=== PATIENT | female | born 1970 | race Caucasian/White ===

== ENCOUNTER 2017-04-18 19:03 | Emergency (ER) | payer BC ==
--- NOTE | 2017-04-18 20:49 | ED NURSING NOTES ---
Clinical Report - Nurses [facility] [address] [place] [address] 04/18/2017 19:07 Patient: CONRAD NESBITT TRIAGE Triage time 19:33. Acuity: LEVEL 3. Chief Complaint: ABDOMINAL PAIN, NAUSEA and DIARRHEA. --19:43 Amparo Guzmán R.N. 19:31 04/18/17. BP: 132/57 taken on the left arm, while lying. HR: 68 (regular and normal rate). RR: 18. O2 saturation: 97% on room air. Temp: 98.3 F. Pain level now: 03/02. --19:43 Amparo Guzmán R.N. Weight: 81.6 kg stated. Height/Length: 68 inches Per Patient. BMI: 27.4. --19:34 Amparo Guzmán R.N. Medications None. --19:36 Amparo Guzmán R.N. Allergies Dilaudid. Definite Severe(Anaphylaxis) --19:36 Amparo Guzmán R.N. History Arrived by private vehicle. Historian: patient. Accompanied by family. Primary physician (none). Onset was gradual. (3 days). ( abd pain started 3 days ago clammy and feeling "yucky"). PAST MEDICAL HX: Immunizations: up-to-date. SOCIAL HX: Heavy tobacco smoker (cigarette)- 1 pack per day. Occasional alcohol use. History of occasional drug use: marijuana. (2 days ago). No recent travel. No known contact with a sick individual. ABUSE ASSESSMENT: No report of abuse. SELF HARM ASSESSMENT: A self harm assessment was performed. The patient answered "no" to the question "Have you recently felt down, depressed, or hopeless?", "Have you noticed less interest or pleasure in doing things?", "Do you have thoughts of harming or killing yourself?", "Are you here because you tried to hurt yourself?", "Have you ever tried to hurt yourself before today?", "Have you recently had thoughts about harming or killing others?" and "Do you have any dangerous items in your possession?". FALL RISK ASSESSMENT: Fall risk assessment completed. No fall risk identified. NUTRITIONAL RISK ASSESSMENT: The nutritional risk assessment revealed no deficiencies. FUNCTIONAL ASSESSMENT: Functional assessment: no impairments noted. LEARNING NEEDS ASSESSMENT: The learning needs assessment revealed no barriers. SKIN INTEGRITY ASSESSMENT: Skin integrity risk assessment completed. No skin integrity risk identified. --19:43 Amparo Guzmán R.N. PROBLEMS: no known problems. ADDITIONAL SURGERIES: Cholecystectomy. . Hysterectomy. Shoulder Surgery. --19:37 Amparo Guzmán R.N. Interventions ID band on patient. To treatment room. --19:43 Amparo Guzmán R.N. PHYSICAL ASSESSMENT Ambulatory to room. GENERAL / NEURO / PSYCH: Alert. Oriented X 4. Appears in no acute distress. HEENT: Mucous membranes are pink. RESPIRATORY: Respirations not labored. Breath sounds within normal limits. CVS: Normal sinus rhythm noted. Cardiac rhythm: normal sinus rhythm; frequent PVCs- bigeminy. Capillary refill less than 2 seconds and is greater than 2 seconds. GI / : Abdomen soft and nontender. Bowel sounds within normal limits. SKIN: Skin is warm and dry. --19:45 Amparo Guzmán R.N. NURSING PROGRESS NOTES Patient gowned. Two patient identifiers checked. Call light placed in reach. Side rails up x 1. Bed placed in lowest position. Brakes of bed on. Patient ready for evaluation- chart flagged. --19:45 Amparo Guzmán R.N. EKG time: (19:48). EKG was performed by a tech and shown to the ED physician. --19:53 Shandra Seo 19:55 04/18/2017 Site #1 started via IV in the left antecubital space with an 20g angiocath, with aseptic technique and good blood return; one attempt. Blood drawn: rainbow set. Labeled in the presence of the patient and sent to the lab. Saline lock flushed with 10 mL saline. --19:57 Amparo Guzmán R.N. 20:02 04/18/2017 Started bag #1 1000 mL IV Fluids IV NS (Saline); bolus of 1000 mL wide open via site #1. Allergies verified and confirmed 5 rights. IV patency established. IV site checked: no pain, redness, or swelling. IV flushed thoroughly pre- and post-medication administration. --20:02 Amparo Guzmán R.N. 20:05 04/18/2017 Zofran (Ondansetron HCl) IVP 4 mg given over 2 minute(s) via site #1. Allergies verified and confirmed 5 rights. IV patency established. IV site checked: no pain, redness, or swelling. IV flushed thoroughly pre- and post-medication administration. IVP given by RN. --20:05 Amparo Guzmán R.N. 20:06 04/18/2017 Toradol IVP 30 mg given over 2 minute(s) via site #1. Allergies verified and confirmed 5 rights. IV patency established. IV site checked: no pain, redness, or swelling. IV flushed thoroughly pre- and post-medication administration. IVP given by RN. --20:06 Amparo Guzmán R.N. 20:07 04/18/17. BP: 119/55. HR: 66. RR: 18. O2 saturation: 100%. Temp: deferred. Pain level now: 12/31. --20:09 Amparo Guzmán R.N. Overall patient status is improved- she states feels better. GI / : The patient reports nausea is gone now, still present but improving and currently mild in severity. SKIN: Skin is warm and dry. Skin color within normal limits. Two patient identifiers checked. Call light placed in reach. Side rails up x 1. Bed placed in lowest position. Brakes of bed on. --20:09 Amparo Guzmán R.N. 20:59 04/18/2017 IV Fluids IV NS Discontinued: completed. Total amount infused: 1000 mL. IV patency established. IV site checked: no pain, redness, or swelling. IV flushed thoroughly. --20:59 Amparo Guzmán R.N. 21:02 04/18/2017 Started 2 gm of Ceftriaxone IVPB in bag #1 50 mL; over 20 minute(s) via site #1 via IV pump. Allergies verified and confirmed 5 rights. IV patency established. IV site checked: no pain, redness, or swelling. IV flushed thoroughly pre- and post-medication administration. --21:02 Amparo Guzmán R.N. 21:28 04/18/2017 Ceftriaxone IVPB Discontinued: completed upon discharge. Total amount infused: 50 mL. IV patency established. IV site checked: no pain, redness, or swelling. IV flushed thoroughly. --21:39 Amparo Guzmná R.N. 21:39 04/18/2017 Site #1 removed upon discharge. Catheter intact. Manual pressure and bandage applied. --21:39 Amparo Guzmán R.N. DISPOSITION / DISCHARGE Departure time: 2133. Condition at departure: improved and stable. No learning barriers present. Discharge instructions provided and reviewed with the patient. Reviewed medication(s) side effects, precautions, dosing and course information. Prescription(s) given to the patient. Patient verbalized understanding. Written instructions provided in Uzbek. The patient was discharged home and accompanied by spouse. She left the Emergency Department ambulatory and via private vehicle. Spouse driving. --21:40 Amparo Guzmán R.N. 21:39 04/18/17. BP: 111/53. HR: 71 (regular and normal rate). RR: 18 (regular and unlabored). O2 saturation: 99% on room air. Temp: deferred. Pain level now: 0/10. --21:40 Amparo Guzmán R.N. Locked/Released at 04/18/2017 21:41 by Amparo Guzmán R.N.
--- NOTE | 2017-04-18 20:49 | ED CLINICAL REPORT ---
Clinical Report - Physicians/Mid Levels [facility] [address] [place] [address] 04/18/2017 19:07 Patient: CONRAD NESBITT Time Seen: 19:52 Yoan 2016. Arrived- By private vehicle. Historian- patient. HISTORY OF PRESENT ILLNESS Chief Complaint: ABDOMINAL PAIN. It is described as "pain" and it is described as located in the lower abdomen and in the pelvic area. This started 3 days and is still present. The patient has had nausea and loss of appetite. No vomiting or diarrhea. (patient presents with suprapubic pain abdominal pain over the last 2-3 days. Denies any fevers or chills, has had decrease in activity level and appetite. Denies any diarrhea. Denies any shortness of breath. Denies chest pain. Denies sick contacts.). REVIEW OF SYSTEMS No constipation, hematemesis, difficulty with urination, pain with urination or urinary frequency. No fever, chest pain or difficulty breathing. All systems otherwise negative, except as recorded above. PAST HISTORY Problems: no known problems. Additional Surgeries: Cholecystectomy. . Hysterectomy. Shoulder Surgery. Medications: None. Allergies: Dilaudid. Definite Severe(Anaphylaxis). SOCIAL HISTORY Smoker- current status unknown. Alcohol use. History of drug use: marijuana. ADDITIONAL NOTES The nursing notes have been reviewed. PHYSICAL EXAM Vital Signs: 04/18/2017 19:31 BP: 132/57. HR: 68. RR: 18. O2 saturation: 97%. Temp: 98.3 F. Pain level now: 5/10. Appearance: Alert. Eyes: Eyes normal inspection. ENT: Ears normal. Nose normal. Pharynx normal. CVS: Normal heart rate and rhythm. Heart sounds normal. Respiratory: No respiratory distress. Breath sounds normal. No accessory muscle use or decreased air movement. Abdomen: Tenderness in the suprapubic area. No guarding or Quevedo's or obturator sign present. No organomegaly. No mass. Back: Normal inspection. No CVA tenderness. Neuro: Oriented X 3. LABS, X-RAYS, AND EKG EKG: EKG time: (1947). No acute process. No acute ischemia. Rate: 64. frequent PVC. Prior EKG unavailable. The study has been interpreted contemporaneously. The EKG appears to be a good tracing. Laboratory Tests: UA-Culture if indicated: (EVE: 04/18/2017 19:50) ( MsgRcvd 04/18/2017 20:10) Final results Test Result Flag Units (Reference) URINE COLOR YELLOW URINE APPEARANCE CLEAR URINE GLUCOSE NEGATIVE (NEGATIVE) URINE BILIRUBIN NEGATIVE (NEGATIVE) URINE KETONE NEGATIVE (NEGATIVE) URINE SPECIFIC GRAVITY 1.015 (1.010-1.030) URINE PH 6.0 (5.0-8.0) URINE PROTEIN NEGATIVE (NEGATIVE) URINE UROBILINOGEN 0.2 EU/dL (0.2-1.0) URINE NITRITE POSITIVE (NEGATIVE) URINE BLOOD NEGATIVE (NEGATIVE) URINE LEUK ESTERASE NEGATIVE (NEGATIVE) URINE RBC 0-1 rbc/hpf (0-1) URINE WBC 1-3 wbc/hpf (0-1) URINE EPITHELIAL CELLS 1-3 EPI/hpf (0-5) URINE BACTERIA MANY (4+) (NONE SEEN) URINE COMMENT CULTURE INDICATED URINE CULTURES ARE SET-UP BASED ON THE FOLLOWING CRITERIA:POSITIVE NITRITEPOSITIVE LEUKOCYTE ESTERASEGREATER THAN 10 WHITE BLOOD CELLSMODERATE (2+) OR GREATER BACTERIA CBC w Diff: (EVE: 04/18/2017 19:51) ( MsgRcvd 04/18/2017 20:10) Final results Test Result Flag Units (Reference) WHITE BLOOD COUNT 8.8 K/uL (4.5-11.5) RED BLOOD COUNT 4.63 M/uL (4.00-5.20) HEMOGLOBIN 14.2 gm/dL (12.0-16.0) HEMATOCRIT 42.6 % (36.0-46.0) MEAN CELL VOLUME 92 fL (80-100) MEAN CORPUSCULAR HGB 31 pg (26-34) MEAN CORPUSCULAR HGB CONC 33 g/dL (31-37) RED CELL DISTRIBUTION WIDTH 13.2 % (11.6-14.8) PLATELET COUNT 206 K/uL (150-400) NEUTROPHIL % 57.6 % (50-75) LYMPH % 30.9 % (25-40) MONO % 7.6 % (3-14) EOSINOPHIL % 2.9 % (0-4) BASOPHIL % 1.0 % (0-2) CMP: (EVE: 04/18/2017 19:51) ( MsgRcvd 04/18/2017 20:22) Final results Test Result Flag Units (Reference) GLUCOSE 87 mg/dL (70-110) BUN 10 mg/dL (7-18) CREATININE 1.0 mg/dL (0.6-1.3) Estimated GFR >60 mL/min Estimated GFR- >60 mL/min Note: Persistent reduction over 3 months in eGFR<60 mL/min/1.73 m2 defines CKD. Patients with eGFR values>=60 mL/min/1.73 m2 may also have CKD if evidence ofpersistent proteinuria. Additional information may be foundat www.kidney.org. SODIUM 142 mmol/L (136-145) POTASSIUM 4.1 mmol/L (3.5-5.1) CHLORIDE 107 mmol/L (98-107) CARBON DIOXIDE 28 mmol/L (21-32) CALCIUM 8.2 L mg/dL (8.5-10.1) TOTAL PROTEIN 6.2 L g/dL (6.4-8.2) ALBUMIN 3.5 g/dL (3.3-5.0) BILIRUBIN, TOTAL 0.3 mg/dL (0.0-1.0) ALKALINE PHOSPHATASE 56 U/L (46-116) AST (SGOT) 11 L U/L (15-37) ALT (SGPT) 17 U/L (12-78) LIPASE 100 U/L (73-393) . PROGRESS AND PROCEDURES Course of Care: Patient here in the ER with pelvic pain, no guarding or rebound. No CVA tenderness. SIGNS OF ACUTE URINARY TRACT INFECTION> Patient with euvolemic nature. Afebrile. 04/18/2017 21:39 BP: 111/53. HR: 71. RR: 18. O2 saturation: 99%. Pain level now: 0/10. 04/18/2017 20:07 BP: 119/55. HR: 66. RR: 18. O2 saturation: 100%. Pain level now: 3/10. Patient is stable. Physical exam findings are improved. Symptoms better. Patient/family counseled. Differential Diagnosis: I considered upper abdominal etiology, perforated peptic ulcer, acute appendicitis, diverticulitis, small bowel obstruction, adhesions, urologic or gynecologic etiology, urinary tract infection, ovarian cyst, pelvic inflammatory disease, pelvic abscess, hernia, abdominal aortic aneurysm, diabetic ketoacidosis and medications as a possible cause of pelvic pain in this patient. This is a partial list of diagnoses considered. Disposition: Discharged. Condition: good. CLINICAL IMPRESSION Acute cystitis. INSTRUCTIONS Drink plenty of fluids. Prescription Medications: Cephalexin 500 mg: take 1 capsule orally every 8 hours for 10 days. No refill. Ibuprofen 800 mg tablets: take 1 tablet orally every 8 hours for 5 days, as needed for pain. Dispense fifteen (15). No refill. Pyridium 100 mg: take 1 orally every 8 hours for 3 days as needed for urinary problems. Dispense ten (10). No refill. Substitution is permissible. Follow-up: Follow up with your doctor in three days. (Electronically signed by Maira Akins P.A.-C 04/18/2017 22:31)
--- NOTE | 2017-04-18 20:49 | ED ORDER SUMMARY ---
..... Patient: CONRAD NESBITT OrderSheet [facility] VisitID: [id number] [address] [place] [address] 46y, F Registration Date/Time: 04/18/2017 ORDER SHEET Weight: 81.6 kg (stated) Allergies: Dilaudid GENERAL ORDERS: Captain Of Guards (Continuous) (19:47 04/18/2017 EKoroleva P.A.-C) (19:54 RKaruga) CBC w Diff Urgent (19:47 04/18/2017 EKoroleva P.A.-C) (Ack 19:50 LMuller) (19:57 CBradburn R.N.) CMP Urgent (19:47 04/18/2017 EKoroleva P.A.-C) (Ack 19:50 LMuller) (19:57 CBradburn R.N.) UA-Culture if indicated Urgent (19:47 04/18/2017 EKoroleva P.A.-C) (Ack 19:50 LMuller) (19:57 CBradburn R.N.) Lipase Urgent (19:47 04/18/2017 EKoroleva P.A.-C) (Ack 19:50 LMuller) (19:57 CBradburn R.N.) EKG - ER Stat (19:47 04/18/2017 EKoroleva P.A.-C) (Ack 19:50 LMuller) (19:53 RKaruga) MEDICATION ORDERS: IV FLUIDS: IV NS : initial bolus 750 mL (1000 mL/hr), then 750 mL/hr for X1 (NOW); Jagjit (19:47 04/18/2017 EKoroleva P.A.-C) (Cancelled: Other19:54 EKoroleva P.A.-C) Zofran IV 4 mg (NOW) (19:47 04/18/2017 EKoroleva P.A.-C) (Ack 19:58 CBradburn R.N.) (20:02 CBradburn R.N.) Toradol IV 30 mg (NOW) (19:49 04/18/2017 EKoroleva P.A.-C) (Ack 19:58 CBradburn R.N.) (20:02 CBradburn R.N.) IV NS : initial bolus 1000 mL (1000 mL/hr), then 1000 mL/hr for X1 (NOW); Jagjit (19:54 04/18/2017 EKoroleva P.A.-C) (Ack 19:58 CBradburn R.N.) (20:02 CBradburn R.N.) IV NS : initial bolus 1000 mL (1000 mL/hr), then 150 mL/hr for X1 (NOW); Jagjit (19:54 04/18/2017 EKoroleva P.A.-C) (Cancelled: Other19:55 EKoroleva P.A.-C) Ceftriaxone IV 2 gm/50mL (NOW) (20:44 04/18/2017 EKoroleva P.A.-C) (Ack 20:59 CBradburn R.N.) (21:02 CBradburn R.N.) ORDER SHEET NOTES: [Electronically signed by Amparo Guzmán R.N. (21:41 04/18/2017)] [Electronically signed by Maira Akins P.A.-C (22:31 04/18/2017)] [Electronically locked/signed by Amparo Guzmán R.N. (21:41 04/18/2017)]
--- NOTE | 2017-04-18 20:49 | ED ORDER SUMMARY ---
..... Patient: CONRAD NESBITT OrderSheet [facility] VisitID: [id number] [address] [place] [address] 46y, F Registration Date/Time: 04/18/2017 ORDER SHEET Weight: 81.6 kg (stated) Allergies: Dilaudid GENERAL ORDERS: Front Line Leader (Continuous) (19:47 04/18/2017 EKoroleva P.A.-C) (19:54 RKaruga) CBC w Diff Urgent (19:47 04/18/2017 EKoroleva P.A.-C) (Ack 19:50 LMuller) (19:57 CBradburn R.N.) CMP Urgent (19:47 04/18/2017 EKoroleva P.A.-C) (Ack 19:50 LMuller) (19:57 CBradburn R.N.) UA-Culture if indicated Urgent (19:47 04/18/2017 EKoroleva P.A.-C) (Ack 19:50 LMuller) (19:57 CBradburn R.N.) Lipase Urgent (19:47 04/18/2017 EKoroleva P.A.-C) (Ack 19:50 LMuller) (19:57 CBradburn R.N.) EKG - ER Stat (19:47 04/18/2017 EKoroleva P.A.-C) (Ack 19:50 LMuller) (19:53 RKaruga) MEDICATION ORDERS: IV FLUIDS: IV NS : initial bolus 750 mL (1000 mL/hr), then 750 mL/hr for X1 (NOW); Jagjit (19:47 04/18/2017 EKoroleva P.A.-C) (Cancelled: Other19:54 EKoroleva P.A.-C) Zofran IV 4 mg (NOW) (19:47 04/18/2017 EKoroleva P.A.-C) (Ack 19:58 CBradburn R.N.) (20:02 CBradburn R.N.) Toradol IV 30 mg (NOW) (19:49 04/18/2017 EKoroleva P.A.-C) (Ack 19:58 CBradburn R.N.) (20:02 CBradburn R.N.) IV NS : initial bolus 1000 mL (1000 mL/hr), then 1000 mL/hr for X1 (NOW); Jagjit (19:54 04/18/2017 EKoroleva P.A.-C) (Ack 19:58 CBradburn R.N.) (20:02 CBradburn R.N.) IV NS : initial bolus 1000 mL (1000 mL/hr), then 150 mL/hr for X1 (NOW); Jagjit (19:54 04/18/2017 EKoroleva P.A.-C) (Cancelled: Other19:55 EKoroleva P.A.-C) Ceftriaxone IV 2 gm/50mL (NOW) (20:44 04/18/2017 EKoroleva P.A.-C) (Ack 20:59 CBradburn R.N.) (21:02 CBradburn R.N.) ORDER SHEET NOTES: [Electronically signed by Amparo Guzmán R.N. (21:41 04/18/2017)] [Electronically signed by Maira Akins P.A.-C (22:31 04/18/2017)] [Electronically locked/signed by Amparo Guzmán R.N. (21:41 04/18/2017)]
--- NOTE | 2017-04-18 22:31 | ED DISCHARGE INSTRUCTIONS ---
Patient: CONRAD NESBITT General Instructions [facility] VisitID: [id number] [place] [address] 46y, F Registration Date/Time: 04/18/2017 Acute cystitis. INSTRUCTIONS Drink plenty of fluids. Prescription Medications: Cephalexin 500 mg: take 1 capsule orally every 8 hours for 10 days. No refill. Ibuprofen 800 mg tablets: take 1 tablet orally every 8 hours for 5 days, as needed for pain. Dispense fifteen (15). No refill. Pyridium 100 mg: take 1 orally every 8 hours for 3 days as needed for urinary problems. Dispense ten (10). No refill. Substitution is permissible. Follow-up: Follow up with your doctor in three days. ADDITIONAL INFORMATION Bladder Infection,Female (Adult) A bladder infection ("cystitis" or "UTI") usually causes a constant urge to urinate and a burning when passing urine. Urine may be cloudy, smelly or dark. There may be pain in the lower abdomen. A bladder infection occurs when bacteria from the vaginal area enter the bladder opening (urethra). This can occur from sexual intercourse, wearing tight clothing, dehydration and other factors. Home Care: Drink lots of fluids (at least 6-8 glasses a day, unless you must restrict fluids for other medical reasons). This will force the medicine into your urinary system and flush the bacteria out of your body. Avoid sexual intercourse until your symptoms are gone. Avoid caffeine, alcohol and spicy foods. These can irritate the bladder. A bladder infection is treated with antibiotics. You may also be given Pyridium (generic = phenazopyridine) to reduce the burning sensation. This medicine will cause your urine to become a bright orange color. The orange urine may stain clothing. You may wear a pad or panty-liner to protect clothing. Preventing Future Infections: Always wipe from front to back after a bowel movement. Keep the genital area clean and dry. Drink plenty of fluids each day to avoid dehydration. Both sexual partners should wash before intercourse. Urinate right after intercourse to flush out the bladder. Wear cotton underwear and cotton-lined panty hose; avoid tight-fitting pants. If you are on control pills and are having frequent bladder infections, discuss with your doctor. Follow Up: Return to this facility or see your doctor if ALL symptoms are not gone after three days of treatment. Get Prompt Medical Attention if any of the following occur: Fever of 100.4F (38C) or higher, or as directed by your healthcare provider No improvement by the third day of treatment Increasing back or abdominal pain Repeated vomiting; unable to keep medicine down Weakness, dizziness or fainting Vaginal discharge Pain, redness or swelling in the labia (outer vaginal area) Cephalexin Monohydrate Oral tablet What is this medicine? CEPHALEXIN (sef a LORE in) is a cephalosporin antibiotic. It is used to treat certain kinds of bacterial infections It will not work for colds, flu, or other viral infections. How should I use this medicine? Take this medicine by mouth with a full glass of water. Follow the directions on the prescription label. This medicine can be taken with or without food. Take your medicine at regular intervals. Do not take your medicine more often than directed. Take all of your medicine as directed even if you think you are better. Do not skip doses or stop your medicine early. Talk to your blow molder regarding the use of this medicine in children. While this drug may be prescribed for selected conditions, precautions do apply. What side effects may I notice from receiving this medicine? Side effects that you should report to your doctor or health career development manager as soon as possible: allergic reactions like skin rash, itching or hives, swelling of the face, lips, or tongue breathing problems pain or trouble passing urine redness, blistering, peeling or loosening of the skin, including inside the mouth severe or watery diarrhea unusually weak or tired yellowing of the eyes, skin Side effects that usually do not require medical attention (report to your doctor or health career development manager if they continue or are bothersome): gas or heartburn genital or anal irritation headache joint or muscle pain nausea, vomiting What may interact with this medicine? probenecid some other antibiotics What if I miss a dose? If you miss a dose, take it as soon as you can. If it is almost time for your next dose, take only that dose. Do not take double or extra doses. There should be at least 4 to 6 hours between doses. Where should I keep my medicine? Keep out of the reach of children. Store at room temperature between 59 and 86 degrees F (15 and 30 degrees C). Throw away any unused medicine after the expiration date. What should I tell my health care provider before I take this medicine? They need to know if you have any of these conditions: kidney disease stomach or intestine problems, especially colitis an unusual or allergic reaction to cephalexin, other cephalosporins, penicillins, other antibiotics, medicines, foods, dyes or preservatives or trying to get breast-feeding What should I watch for while using this medicine? Tell your doctor or health career development manager if your symptoms do not begin to improve in a few days. Do not treat diarrhea with over the counter products. Contact your doctor if you have diarrhea that lasts more than 2 days or if it is severe and watery. If you have diabetes, you may get a false-positive result for sugar in your urine. Check with your doctor or health career development manager. You have been given the following additional information: Bladder Infection, Female (Adult) Cephalexin Monohydrate Oral tablet (Electronically signed by Maira Akins P.A.-C 04/18/2017 22:31)
--- NOTE | 2017-04-18 22:31 | ED DISCHARGE INSTRUCTIONS ---
Patient: CONRAD NESBITT General Instructions [facility] VisitID: [id number] [place] [address] 46y, F Registration Date/Time: 04/18/2017 Acute cystitis. INSTRUCTIONS Drink plenty of fluids. Prescription Medications: Cephalexin 500 mg: take 1 capsule orally every 8 hours for 10 days. No refill. Ibuprofen 800 mg tablets: take 1 tablet orally every 8 hours for 5 days, as needed for pain. Dispense fifteen (15). No refill. Pyridium 100 mg: take 1 orally every 8 hours for 3 days as needed for urinary problems. Dispense ten (10). No refill. Substitution is permissible. Follow-up: Follow up with your doctor in three days. ADDITIONAL INFORMATION Bladder Infection,Female (Adult) A bladder infection ("cystitis" or "UTI") usually causes a constant urge to urinate and a burning when passing urine. Urine may be cloudy, smelly or dark. There may be pain in the lower abdomen. A bladder infection occurs when bacteria from the vaginal area enter the bladder opening (urethra). This can occur from sexual intercourse, wearing tight clothing, dehydration and other factors. Home Care: Drink lots of fluids (at least 6-8 glasses a day, unless you must restrict fluids for other medical reasons). This will force the medicine into your urinary system and flush the bacteria out of your body. Avoid sexual intercourse until your symptoms are gone. Avoid caffeine, alcohol and spicy foods. These can irritate the bladder. A bladder infection is treated with antibiotics. You may also be given Pyridium (generic = phenazopyridine) to reduce the burning sensation. This medicine will cause your urine to become a bright orange color. The orange urine may stain clothing. You may wear a pad or panty-liner to protect clothing. Preventing Future Infections: Always wipe from front to back after a bowel movement. Keep the genital area clean and dry. Drink plenty of fluids each day to avoid dehydration. Both sexual partners should wash before intercourse. Urinate right after intercourse to flush out the bladder. Wear cotton underwear and cotton-lined panty hose; avoid tight-fitting pants. If you are on control pills and are having frequent bladder infections, discuss with your doctor. Follow Up: Return to this facility or see your doctor if ALL symptoms are not gone after three days of treatment. Get Prompt Medical Attention if any of the following occur: Fever of 100.4F (38C) or higher, or as directed by your healthcare provider No improvement by the third day of treatment Increasing back or abdominal pain Repeated vomiting; unable to keep medicine down Weakness, dizziness or fainting Vaginal discharge Pain, redness or swelling in the labia (outer vaginal area) Cephalexin Monohydrate Oral tablet What is this medicine? CEPHALEXIN (sef a LORE in) is a cephalosporin antibiotic. It is used to treat certain kinds of bacterial infections It will not work for colds, flu, or other viral infections. How should I use this medicine? Take this medicine by mouth with a full glass of water. Follow the directions on the prescription label. This medicine can be taken with or without food. Take your medicine at regular intervals. Do not take your medicine more often than directed. Take all of your medicine as directed even if you think you are better. Do not skip doses or stop your medicine early. Talk to your skin fitter regarding the use of this medicine in children. While this drug may be prescribed for selected conditions, precautions do apply. What side effects may I notice from receiving this medicine? Side effects that you should report to your doctor or health animal care worker as soon as possible: allergic reactions like skin rash, itching or hives, swelling of the face, lips, or tongue breathing problems pain or trouble passing urine redness, blistering, peeling or loosening of the skin, including inside the mouth severe or watery diarrhea unusually weak or tired yellowing of the eyes, skin Side effects that usually do not require medical attention (report to your doctor or health animal care worker if they continue or are bothersome): gas or heartburn genital or anal irritation headache joint or muscle pain nausea, vomiting What may interact with this medicine? probenecid some other antibiotics What if I miss a dose? If you miss a dose, take it as soon as you can. If it is almost time for your next dose, take only that dose. Do not take double or extra doses. There should be at least 4 to 6 hours between doses. Where should I keep my medicine? Keep out of the reach of children. Store at room temperature between 59 and 86 degrees F (15 and 30 degrees C). Throw away any unused medicine after the expiration date. What should I tell my health care provider before I take this medicine? They need to know if you have any of these conditions: kidney disease stomach or intestine problems, especially colitis an unusual or allergic reaction to cephalexin, other cephalosporins, penicillins, other antibiotics, medicines, foods, dyes or preservatives or trying to get breast-feeding What should I watch for while using this medicine? Tell your doctor or health animal care worker if your symptoms do not begin to improve in a few days. Do not treat diarrhea with over the counter products. Contact your doctor if you have diarrhea that lasts more than 2 days or if it is severe and watery. If you have diabetes, you may get a false-positive result for sugar in your urine. Check with your doctor or health animal care worker. You have been given the following additional information: Bladder Infection, Female (Adult) Cephalexin Monohydrate Oral tablet (Electronically signed by Maira Akins P.A.-C 04/18/2017 22:31)
--- NOTE | 2017-04-18 22:32 | ED MAR SUMMARY ---
..... Medication Administration Record [facility] [address] [place] [address] Patient: CONRAD NESBITT Visit ID: [id number] 46y, F Weight: 81.6 kg Height/Length: 68 in BMI: 27.4 ALLERGIES: Dilaudid Start 20:02 04/18/2017 Amparo Guzmán R.N., Stop 20:59 04/18/2017 Amparo Guzmán R.N. Medication Administered: IV NS (SALINE), Dose: IV Fluids, Bolus: 1000 mL wide open, Dispensed: 1000 mL bag, Site: #1 left AC. Medication Ordered: IV NS : initial bolus 1000 mL (1000 mL/hr), then 1000 mL/hr for X1 (NOW); Jagjit. Given 20:05 04/18/2017 Amparo Guzmán R.N. Medication Administered: ZOFRAN [IVP] (ONDANSETRON HCL), Dose: 4 mg IVP over 2 minute(s), Site: #1 left AC. Medication Ordered: Zofran IV 4 mg (NOW). Given 20:06 04/18/2017 Amparo Guzmán R.N. Medication Administered: TORADOL [IVP], Dose: 30 mg IVP over 2 minute(s), Site: #1 left AC. Medication Ordered: Toradol IV 30 mg (NOW). Start 21:02 04/18/2017 Amparo Guzmán R.N., Stop 21:28 04/18/2017 Amparo Guzmán R.N. Medication Administered: CEFTRIAXONE [IVPB], Dose: 2 gm IVPB over 20 minute(s), Dispensed: 50 mL bag, Site: #1 left AC. Medication Ordered: Ceftriaxone IV 2 gm/50mL (NOW).
--- NOTE | 2017-04-18 22:32 | ED MED RECONCILIATION SUMMARY ---
Patient: CONRAD NESBITT Medication Reconciliation Report [facility] VisitID: [id number] [address] [place] [address] 46y, F Registration Date/Time: 04/18/2017 Weight: 81.6 kg Height/Length: 68 in. BMI: 27.4 ALLERGIES: Dilaudid The patient's Home Medications are listed below: NONE. The source(s) of the original Home Medication information: Not obtained. The following Medications were given to the patient in the Emergency Department: IV NS IV Fluids bolus 1000 mL wide open, administered: 04/18/2017 8:02:00 PM Zofran [IVP] IVP 4 mg, administered: 04/18/2017 8:05:00 PM Toradol [IVP] IVP 30 mg, administered: 04/18/2017 8:06:00 PM Ceftriaxone [IVPB] IVPB bolus 0, then 2 gm, administered: 04/18/2017 9:02:00 PM The following Medications were prescribed to the patient: Cephalexin 500 mg: take 1 capsule orally every 8 hours for 10 days. No refill. -- Maira Akins, P.A.-C Ibuprofen 800 mg tablets: take 1 tablet orally every 8 hours for 5 days, as needed for pain. Dispense fifteen (15). No refill. -- Maira Akins, P.A.-C Pyridium 100 mg: take 1 orally every 8 hours for 3 days as needed for urinary problems. Dispense ten (10). No refill. Substitution is permissible. -- Maira Akins, P.A.-C
--- NOTE | 2017-04-18 22:32 | ED MED RECONCILIATION SUMMARY ---
Patient: CONRAD NESBITT Medication Reconciliation Report [facility] VisitID: [id number] [address] [place] [address] 46y, F Registration Date/Time: 04/18/2017 Weight: 81.6 kg Height/Length: 68 in. BMI: 27.4 ALLERGIES: Dilaudid The patient's Home Medications are listed below: NONE. The source(s) of the original Home Medication information: Not obtained. The following Medications were given to the patient in the Emergency Department: IV NS IV Fluids bolus 1000 mL wide open, administered: 04/18/2017 8:02:00 PM Zofran [IVP] IVP 4 mg, administered: 04/18/2017 8:05:00 PM Toradol [IVP] IVP 30 mg, administered: 04/18/2017 8:06:00 PM Ceftriaxone [IVPB] IVPB bolus 0, then 2 gm, administered: 04/18/2017 9:02:00 PM The following Medications were prescribed to the patient: Cephalexin 500 mg: take 1 capsule orally every 8 hours for 10 days. No refill. -- Maira Akins, P.A.-C Ibuprofen 800 mg tablets: take 1 tablet orally every 8 hours for 5 days, as needed for pain. Dispense fifteen (15). No refill. -- Maira Akins, P.A.-C Pyridium 100 mg: take 1 orally every 8 hours for 3 days as needed for urinary problems. Dispense ten (10). No refill. Substitution is permissible. -- Maira Akins, P.A.-C
--- NOTE | 2017-04-18 22:32 | ED MAR SUMMARY ---
..... Medication Administration Record [facility] [address] [place] [address] Patient: CONRAD NESBITT Visit ID: [id number] 46y, F Weight: 81.6 kg Height/Length: 68 in BMI: 27.4 ALLERGIES: Dilaudid Start 20:02 04/18/2017 Amparo Guzmán R.N., Stop 20:59 04/18/2017 Amparo Guzmán R.N. Medication Administered: IV NS (SALINE), Dose: IV Fluids, Bolus: 1000 mL wide open, Dispensed: 1000 mL bag, Site: #1 left AC. Medication Ordered: IV NS : initial bolus 1000 mL (1000 mL/hr), then 1000 mL/hr for X1 (NOW); Jagjit. Given 20:05 04/18/2017 Amparo Guzmán R.N. Medication Administered: ZOFRAN [IVP] (ONDANSETRON HCL), Dose: 4 mg IVP over 2 minute(s), Site: #1 left AC. Medication Ordered: Zofran IV 4 mg (NOW). Given 20:06 04/18/2017 Amparo Guzmán R.N. Medication Administered: TORADOL [IVP], Dose: 30 mg IVP over 2 minute(s), Site: #1 left AC. Medication Ordered: Toradol IV 30 mg (NOW). Start 21:02 04/18/2017 Amparo Guzmán R.N., Stop 21:28 04/18/2017 Amparo Guzmán R.N. Medication Administered: CEFTRIAXONE [IVPB], Dose: 2 gm IVPB over 20 minute(s), Dispensed: 50 mL bag, Site: #1 left AC. Medication Ordered: Ceftriaxone IV 2 gm/50mL (NOW).
== END 2017-04-18 21:34 | disposition home or self-care (01) ==
LOC: ED SRH 19:03
DX: N30.00 Acute cystitis without hematuria (principal); Z88.5 Allergy status to narcotic agent
CPT/HCPCS: 90004; 90100; 90469; 92235; 95059